=== PATIENT | female | born 1955 | race Caucasian/White ===

== ENCOUNTER 2017-05-18 22:52 | Inpatient (IN) ==
[2017-05-18 23:20] LABS: Basophils % 0.4 %; Eosinophils # 0.3 K/mcL (0.0-0.6); Eosinophils % 3.4 %; Hemoglobin 17.9 g/dL (11.5-15.4); Immature Granulocytes % 0.3 % (0-4); Lymphocytes # 1.1 K/mcL (0.6-4.6); Lymphocytes % 14.5 %; Mean Corpuscular HGB Conc 31.9 g/dL (31.6-35.5); Mean Corpuscular Hemoglobin 30.9 pg (28.0-33.3); Mean Corpuscular Volume 96.9 fL (83.0-100.0); Mean Platelet Volume 9.3 fL (9.4-12.4); Monocytes # 0.6 K/mcL (0.0-1.3); Monocytes % 8.5 %; Neutrophils # 5.4 K/mcL (1.6-8.9); Platelet Count 232 K/mcL (140-400); Red Cell Distribution Width 14.1 % (11.5-14.5); Segmented Neutrophils % 72.9 %
[2017-05-18 23:25] LABS: Hematocrit 56.2 % (35.3-44.9)
[2017-05-18 23:33] LABS: Calcium 10.4 mg/dL (8.6-10.8)
[2017-05-19 01:14] LABS: VBG HCO3 36 mEq/L (21-27); VBG PCO2 68 mmHg (41-51); VBG PH 7.34 pH Units (7.32-7.42); VBG PO2 54 mmHg (25-50)
[2017-05-19] MEDS ORDERED: *HR* Heparin 5,000 UNIT/ML VIAL IVP PRN ×2 (01:40)
[2017-05-19] MEDS ORDERED: *HR* Heparin 5,000 UNIT/ML VIAL IVP ONE (01:40)
[2017-05-19] MEDS ORDERED: Heparin 25,000 UNIT/500 ML D5W 25,000 UNIT/500 ML MLS IVC SCH (01:45)
--- NOTE | 2017-05-19 02:07 | Emergency Department Note ---
Disposition Clinical Impression: Hypoxemia CHF exacerbation Qualifiers: Congestive heart failure type: unspecified congestive heart failure type Qualified Code(s): I50.9 - Heart failure, unspecified Disposition: Admitted As Inpatient Condition: Fair Time of Disposition: 02:17 SOB HPI - General Chief Complaint: ED Shortness of Breath/Dyspnea Stated Complaint: RAS Time Seen by Provider: 05/18/17 23:05 Source: patient Limitations: no limitations Nursing Notes Reviewed: Yes Vital Signs Reviewed: Yes - History of Present Illness Patient is a 61-year-old female who presents to [facility] ED with a chief complaint of difficulty breathing. States her symptoms started on Sunday and she went to the primary care physician to get a chest x-ray. States that all looked good. She has been increasingly short of breath. Denies any nausea, vomiting, fever or chills. No recent upper respiratory-type symptoms. Past medical history significant for congestive heart failure. States it feels different from her previous CHF. Pt Subjective Complaint: shortness of breath Onset (ago): day(s) Severity: severe Consistency/Duration: gradually worsening Improves with: oxygen Worsens with: nothing Known history of: congestive heart failure Associated symptoms: Reports: orthopnea. Denies: chest pain, fever, cough, nausea/vomiting, abdominal pain Treatment prior to arrival: none Cough present: No - Related Data Home oxygen amount: none Home Medications Medication Instructions Recorded Confirmed Allopurinol [Zyloprim] 300 mg PO DAILY 05/19/17 05/19/17 Carvedilol [Coreg] 12.5 mg PO BID 05/19/17 05/19/17 Furosemide [Lasix] 40 mg PO BID 05/19/17 05/19/17 Gabapentin [Neurontin] 100 mg PO TID 05/19/17 05/19/17 Humalog 05/19/17 Insulin Glargine [Lantus] 200 unit SQ HS 05/19/17 05/19/17 Lisinopril [Zestril] 40 mg PO DAILY 05/19/17 05/19/17 Ranitidine HCl [Zantac] 150 mg PO BID 05/19/17 05/19/17 Spironolactone [Aldactone] 50 mg PO BID 05/19/17 05/19/17 Allergies Allergy/AdvReac Type Severity Reaction Status Date / Time No Known Allergies Allergy Verified 05/18/17 22:57 All systems ED: reviewed and negative except as stated. Past Medical History - Past Medical History Attestation: Yes The following information was validated with the patient. Source: patient Medical history: Reports: diabetes, hypertension Psychiatric history: Reports: no psych history HOSPICE AIDE history: Reports: bilateral tubal ligation - Social History Smoking Status: Former smoker Alcohol use: Reports: none Drug use: Reports: none Physical Exam - General Limitations: no limitations General appearance: alert, in no apparent distress - Head Head exam: atraumatic, normocephalic, normal inspection - Eye Eye exam: Present: normal appearance, EOMI - ENT ENT exam: normal exam, normal oropharynx, mucous membranes moist - Neck Neck exam: Present: normal inspection, full ROM, trachea midline - Chest Chest inspection: Present: normal inspection, symmetric chest wall rise - Respiratory Respiratory exam: Present: normal lung sounds bilaterally. Absent: respiratory distress, wheezes - Cardiovascular Cardiovascular exam: Present: normal rhythm, tachycardia - Abdominal Exam Abdominal exam: Present: soft, Non-Tender. Absent: tenderness, distention, guarding, rebound, rigidity - Extremities Exam Extremities exam: Present: normal inspection, full ROM. Absent: tenderness, pedal edema - Back Exam Back exam: Present: normal inspection - Neurological Exam Neurological exam: Present: alert - Psychiatric Psychiatric exam: Present: normal affect, normal mood - Skin Skin exam: Present: warm, dry, intact, normal color Course Course Narrative: Patient seen and examined. Sudden shortness of breath is gradually getting worse. Patient is obviously dyspneic and talks in short word sentences. Her lungs are clear bilaterally so do not suspect any airway bronchospasm. Concern for possible pulmonary embolism due to her hypoxemia. She was 72% on room air when she came in. The placed on 3 L and she came up to 92%. Denies any chest pain. Cardiopulmonary workup was initiated. CT of the chest was ordered to rule out pulmonary embolus. - Reevaluation(s) Reevaluation #1: Patient's creatinine is 1.5 and with signs of congestive heart failure on her chest x-ray, we held off on pretreating with IV fluids and doing a CTA of the chest. We discussed with nuclear med who cannot do the study until the morning. Dimer is 1273. We will prophylactically place patient on a heparin drip since suspicion for pulmonary embolus is high. Was admitted to hospitalist service. I spoke with hospitalist Dr. Spain who has accepted patient for admission. Time: 03:15 Vital Signs Temperature 98.1 F 05/18/17 22:53 Pulse Rate 104 05/18/17 22:53 Respiratory Rate 24 05/18/17 22:53 Blood Pressure 205/83 05/18/17 22:53 O2 Sat by Pulse Oximetry 73 05/18/17 22:53 Temperature 98.5 F 05/19/17 04:24 Pulse Rate 86 05/19/17 04:24 Respiratory Rate 18 05/19/17 04:24 Blood Pressure 136/78 05/19/17 04:24 O2 Sat by Pulse Oximetry 92 05/19/17 04:24 Oxygen Delivery Oxygen Delivery Nasal Cannula Shortness of Breath/Dyspnea - Medical Records Medical records reviewed: Yes I reviewed the patient's medical records. - Lab Data Lab results reviewed: Yes I reviewed the patient's lab results. Result diagrams: 05/18/17 23:05 05/18/17 23:05 Lab Results 05/18/17 05/18/17 05/18/17 Range/Units 23:05 23:05 23:05 WBC 7.4 (4.3-11.1) K/mcL RBC 5.80 H (3.82-4.97) M/mcL Hgb 17.9 H (11.5-15.4) g/dL Hct 56.2 H (35.3-44.9) % MCV 96.9 (83.0-100.0) fL MCH 30.9 (28.0-33.3) pg MCHC 31.9 (31.6-35.5) g/dL RDW 14.1 (11.5-14.5) % Plt Count 232 (140-400) K/mcL MPV 9.3 L (9.4-12.4) fL Immature Gran % 0.3 (0-4) % Seg Neutrophils % 72.9 % Lymphocytes % 14.5 % Monocytes % 8.5 % Eosinophils % 3.4 % Basophils % 0.4 % Neutrophils # 5.4 (1.6-8.9) K/mcL Lymphocytes # 1.1 (0.6-4.6) K/mcL Monocytes # 0.6 (0.0-1.3) K/mcL Eosinophils # 0.3 (0.0-0.6) K/mcL Basophils # 0.0 (0.0-0.2) K/mcL PT (9.4-12.1) Seconds INR APTT (26.0-36.0) Seconds D-Dimer (0-500) ng/mLFEU VBG pH (7.32-7.42) pH Units VBG pCO2 (41-51) mmHg VBG pO2 (25-50) mmHg VBG HCO3 (21-27) mEq/L Sodium 143 (136-145) mEq/L Potassium 4.0 (3.5-4.5) mEq/L Chloride 99 (98-109) mEq/L Carbon Dioxide 35 H (19-29) mEq/L BUN 21 H (7-20) mg/dL Creatinine 1.50 H (0.57-1.11) mg/dL Est GFR ( Amer) 43 L (> 60) Est GFR (Non-Af Amer) 35 L (> 60) BUN/Creatinine Ratio 14 (6-26) Glucose 145 H (70-99) mg/dL Calculated Osmolality 302 H (280-300) Lactic Acid 1.5 (0.5-2.2) mmol/L Calcium 10.4 (8.6-10.8) mg/dL Troponin I (0-0.03) ng/mL B-Natriuretic Peptide (0-100) pg/mL 05/18/17 05/18/17 05/19/17 Range/Units 23:05 23:05 00:53 WBC (4.3-11.1) K/mcL RBC (3.82-4.97) M/mcL Hgb (11.5-15.4) g/dL Hct (35.3-44.9) % MCV (83.0-100.0) fL MCH (28.0-33.3) pg MCHC (31.6-35.5) g/dL RDW (11.5-14.5) % Plt Count (140-400) K/mcL MPV (9.4-12.4) fL Immature Gran % (0-4) % Seg Neutrophils % % Lymphocytes % % Monocytes % % Eosinophils % % Basophils % % Neutrophils # (1.6-8.9) K/mcL Lymphocytes # (0.6-4.6) K/mcL Monocytes # (0.0-1.3) K/mcL Eosinophils # (0.0-0.6) K/mcL Basophils # (0.0-0.2) K/mcL PT (9.4-12.1) Seconds INR APTT (26.0-36.0) Seconds D-Dimer (0-500) ng/mLFEU VBG pH (7.32-7.42) pH Units VBG pCO2 (41-51) mmHg VBG pO2 (25-50) mmHg VBG HCO3 (21-27) mEq/L Sodium (136-145) mEq/L Potassium (3.5-4.5) mEq/L Chloride (98-109) mEq/L Carbon Dioxide (19-29) mEq/L BUN (7-20) mg/dL Creatinine (0.57-1.11) mg/dL Est GFR ( Amer) (> 60) Est GFR (Non-Af Amer) (> 60) BUN/Creatinine Ratio (6-26) Glucose (70-99) mg/dL Calculated Osmolality (280-300) Lactic Acid 0.9 (0.5-2.2) mmol/L Calcium (8.6-10.8) mg/dL Troponin I 0.01 (0-0.03) ng/mL B-Natriuretic Peptide 44 (0-100) pg/mL 05/19/17 05/19/17 05/19/17 Range/Units 00:53 01:11 02:20 WBC (4.3-11.1) K/mcL RBC (3.82-4.97) M/mcL Hgb (11.5-15.4) g/dL Hct (35.3-44.9) % MCV (83.0-100.0) fL MCH (28.0-33.3) pg MCHC (31.6-35.5) g/dL RDW (11.5-14.5) % Plt Count (140-400) K/mcL MPV (9.4-12.4) fL Immature Gran % (0-4) % Seg Neutrophils % % Lymphocytes % % Monocytes % % Eosinophils % % Basophils % % Neutrophils # (1.6-8.9) K/mcL Lymphocytes # (0.6-4.6) K/mcL Monocytes # (0.0-1.3) K/mcL Eosinophils # (0.0-0.6) K/mcL Basophils # (0.0-0.2) K/mcL PT 12.1 (9.4-12.1) Seconds INR 1.1 APTT 32.6 (26.0-36.0) Seconds D-Dimer 1273 H (0-500) ng/mLFEU VBG pH 7.34 (7.32-7.42) pH Units VBG pCO2 68 H (41-51) mmHg VBG pO2 54 H (25-50) mmHg VBG HCO3 36 H (21-27) mEq/L Sodium (136-145) mEq/L Potassium (3.5-4.5) mEq/L Chloride (98-109) mEq/L Carbon Dioxide (19-29) mEq/L BUN (7-20) mg/dL Creatinine (0.57-1.11) mg/dL Est GFR ( Amer) (> 60) Est GFR (Non-Af Amer) (> 60) BUN/Creatinine Ratio (6-26) Glucose (70-99) mg/dL Calculated Osmolality (280-300) Lactic Acid (0.5-2.2) mmol/L Calcium (8.6-10.8) mg/dL Troponin I (0-0.03) ng/mL B-Natriuretic Peptide (0-100) pg/mL - Radiology Data Radiology results reviewed: Yes I reviewed the patient's radiology results. Chest X-Ray 05/18/17 23:05 IMPRESSION: Mild cardiomegaly and central vascular congestion. No overt failure. D/ / Zion Deleon MD / Zion Deleon MD Interpreting Provider: Zion Deleon MD - EKG Data EKG attestation: Yes I reviewed and interpreted this EKG. EKG results narrative: EKG done at 2302 shows normal sinus rhythm with a rate of [address] elevation or depression. Normal axis. Attestation Statement - Attestation Attestation: I examined this patient and my medical decision-making was reviewed with the Resident Physician. I agree with the documented findings, disposition and treatment plan as described except to the extent set forth below. Patient presents to the emergency department with chief complaint shortness of breath. Onset 1 week ago by getting worse. No cough. No fever. History of CHF. Reports increased swelling in her legs. On examination she is tachypneic. Lung sounds diminished but clear. Afebrile. 3+ pitting edema bilateral lower extremities. Plan. Cardiac workup. Troponin is negative. Patient's GFR is too low for CTA. Potential V/Q scan, however they are not able to be performed after midnight. Patient been on heparin. VQ scan pending. 40 minutes of critical care exclusive of separately billable procedures.
[2017-05-19 02:33] LABS: INR 1.1; Prothrombin Time 12.1 Seconds (9.4-12.1)
[2017-05-19 02:35] LABS: Activated Partial Thrombo Time 32.6 Seconds (26.0-36.0)
[2017-05-19] MEDS ORDERED: *HR* Morphine 2 MG/ML SYRINGE IVP PRN (02:57)
[2017-05-19] MEDS ORDERED: Naloxone 0.4 MG/ML INJ IVP PRN (02:57)
[2017-05-19] MEDS ORDERED: Ondansetron 4 MG/2 ML VIAL IVP PRN (02:57)
[2017-05-19] MEDS ORDERED: *HR* HYDROcodone/Acet 5/325 mg TABLET PO PRN (02:57)
[2017-05-19] MEDS ORDERED: Lisinopril 20 MG TABLET PO ONE (04:00)
--- NOTE | 2017-05-19 04:12 | Internal Med History&Physical ---
Date of Encounter: 05/19/17 Time of Encounter: 03:00 Assessment and Plan (1) Shortness of breath Current visit: Yes Status: Acute Will admit the pt into Tele Her SOB seems to be multi factorial --however with sudden onset and hypoxemia with out any pneumonia / pleural fluids / pulmonary edema - concerning for PE Reviewed VBG results Reviewed CXR by myself Unable to do CTA of chest due to her CKD-3 Will continue heparin gtt for now will get V/Q Scan in AM will get venous doppler in AM (2) Acute respiratory failure with hypoxia Current visit: Yes Status: Acute Suspecting PE Could be due to hypoventilation syndrome with morbid obesity too placed her on Duoneb cont O2 may need home O2 eval (3) Hypoventilation syndrome Current visit: Yes Status: Acute (4) CHF (congestive heart failure) Current visit: Yes Status: Chronic does not look like in exacerbation no previous Echo to review, wether she has systolic or diastolic CHF will get 2 D Echo in AM Resumed all other home meds including Lasix and Aldactone Qualifiers: Qualified Code(s): I50.9 - Heart failure, unspecified (5) Hypertension, essential Current visit: Yes Status: Acute fairly controlled cont home meds will give hydralazine IV PRN (6) Elevated d-dimer Current visit: Yes Status: Acute will get V/Q Scan and b/l LE venous doppler (7) Morbid obesity with BMI of 50.0-59.9, adult Current visit: Yes Status: Acute counseled to loose weight (8) CKD (chronic kidney disease) stage 3, GFR 30-59 ml/min Current visit: Yes Status: Chronic stable Cr Internal Medicine - H&P: HPI Chief complaint: Shortness of breath Admitted From: Emergency Dept Plans for Post Hospital Care: Home History of present illness: Ms. Camarena is a 61 year old female with known PMH of HTN, HLD, CHF, DM2, Morbid obesity pt with possible hypoventilation syndrome who presented to ER last night c/o progressively worsening shortness of breath and MORLEY. She denied any CP, denied any cold/cough/URI symptoms. Denied any nasua / vomiting. She started having SOB from past 4 days , did go and see PCP 2 days ago who did CXR , which seems to be normal. However her SOB seems to be progressively worsening now. Past Med Surg Social Fam HX - Past Medical History Medical history: diabetes, hypertension Psychiatric history: no psych history - Past Surgical History Surgical History: cholecystectomy - Social History Smoking Status: Former smoker Smokeless Tobacco Status: No Alcohol use: none Drug use: none - Family History Father Adopted: No Living Status: Hx Family Cancer: Yes (colon) Internal Medicine - H&P: Meds Allopurinol [Zyloprim] 300 mg PO ONCE 05/19/17 [History] Carvedilol [Coreg] 12.5 mg PO BID 05/19/17 [History] Furosemide [Lasix] 40 mg PO BID 05/19/17 [History] Gabapentin [Neurontin] 100 mg PO TID 05/19/17 [History] Humalog 05/19/17 [History] Insulin Glargine [Lantus] 200 unit SQ HS 05/19/17 [History] Lisinopril [Zestril] 40 mg PO ONCE 05/19/17 [History] Ranitidine HCl [Zantac] 150 mg PO BID 05/19/17 [History] Spironolactone [Aldactone] 50 mg PO BID 05/19/17 [History] 3 Allergy/AdvReac Type Severity Reaction Status Date / Time No Known Allergies Allergy Verified 05/18/17 22:57 All Systems PM: A 10-system review of systems was performed and is negative for pertinent findings except as documented above in the HPI. - Constitutional Vitals: Temp Pulse Resp BP Pulse Ox 98.1 F 72 16 168/68 93 05/18/17 22:53 05/19/17 00:30 05/19/17 02:34 05/19/17 02:34 05/19/17 00:30 General appearance: Present: A&O X 3, answers questions appropriately - Head Head exam: Present: atraumatic, normal inspection - Respiratory Respiratory exam: Present: decreased breath sounds, wheezes. Absent: rales, respiratory distress, rhonchi - Cardiovascular Cardiovascular exam: Present: RRR, +S1, +S2. Absent: systolic murmur - GI/Abdominal GI/Abdominal exam: Present: distended, normal bowel sounds, soft. Absent: rebound, rigid, tenderness - Extremities Exam Extremities exam: Present: pedal edema (trace). Absent: calf tenderness, tenderness Additional comments: chronic venous stasis - Neurological Exam Neurological exam: Present: alert, oriented X3 - Psychiatric Psychiatric exam: Present: normal affect, normal mood Internal Med - H&P Results - Labs CBC & Chem 7: 05/18/17 23:05 05/18/17 23:05
[2017-05-19] MEDS ORDERED: Dextrose Gel 15 GM PO PRN ×2 (04:33)
[2017-05-19] MEDS ORDERED: *HR* Dextrose 50 % in Water (Syg) 50 ML SYRINGE IVP PRN (04:33)
[2017-05-19] MEDS ORDERED: D5% in Water 1,000 ML IVC PRN (04:33)
[2017-05-19 07:24] LABS: Basophils % 0.2 %; Eosinophils # 0.3 K/mcL (0.0-0.6); Hematocrit 50.4 % (35.3-44.9); Immature Granulocytes % 0.3 % (0-4); Lymphocytes # 1.3 K/mcL (0.6-4.6); Lymphocytes % 14.5 %; Mean Corpuscular HGB Conc 31.7 g/dL (31.6-35.5); Mean Corpuscular Hemoglobin 31.2 pg (28.0-33.3); Mean Corpuscular Volume 98.2 fL (83.0-100.0); Mean Platelet Volume 9.7 fL (9.4-12.4); Monocytes % 11.2 %; Neutrophils # 6.5 K/mcL (1.6-8.9); Platelet Count 198 K/mcL (140-400); Red Blood Count 5.13 M/mcL (3.82-4.97); Red Cell Distribution Width 13.9 % (11.5-14.5); Segmented Neutrophils % 70.8 %
[2017-05-19 07:29] LABS: Calcium 9.4 mg/dL (8.6-10.8); Chol/HDL Ratio 4.1 (0-4.9); Potassium 3.9 mEq/L (3.5-4.5)
[2017-05-19] MEDS ORDERED: 0.9 % Sodium Chloride 250 ML IVC ONE (07:41)
[2017-05-19] MEDS ORDERED: 0.9 % Sodium Chloride 1,000 ML IVC SCH (07:45)
[2017-05-19] MEDS ORDERED: 0.9 % Sodium Chloride 250 ML ONE (07:59)
[2017-05-19] MEDS: Insulin LISPRO 300 UNITS/3 ML VIAL SQ SCH ×4 (08:09→21:14)
[2017-05-19] MEDS: Famotidine 20 MG TABLET PO SCH ×2 (08:11→16:58)
[2017-05-19] MEDS: Lisinopril 20 MG TABLET PO SCH (08:11)
[2017-05-19] MEDS: Gabapentin 100 MG CAPSULE PO SCH ×3 (08:11→21:15)
[2017-05-19] MEDS: Furosemide 40 MG TABLET PO SCH (08:12)
[2017-05-19] MEDS: *HR* Acetylcysteine 20% 600 MG/3 ML ORAL SYRINGE PO SCH ×3 (08:18→21:15)
[2017-05-19 09:04] LABS: Activated Partial Thrombo Time 218.6 Seconds (26.0-36.0); Heparin anti-factor XA UFH 1.15 IU/mL (0.30-0.70)
[2017-05-19] MEDS ORDERED: 0.9 % Sodium Chloride 500 ML IVC SCH (09:31)
[2017-05-19] MEDS: Acetaminophen 325 MG TABLET PO PRN (09:53)
[2017-05-19] MEDS ORDERED: Ipratropium/Albuterol Neb 3 ML IH PRN (11:08)
--- NOTE | 2017-05-19 11:21 | Event Note ---
Date of Encounter: 05/19/17 Time of Encounter: 11:10 Patient is a 61y/o morbidly obese female with PMH of CHF, CKD who presented to the hospital for evaluation of shortness of breath. patient states she is a former smoker and used to smoke 2ppd x 40+years. Upon auscultation, she is noted to have decreased breath sounds bilaterally with poor inspiratory effort and b/l expiratory wheezing. She likely has underlying undiagnosed COPD contributing to her current symptoms. Pt will need outpatient Pulmonary function tests after discharge. She was noted to have elevated D-dimer upon her arrival and given her CKD, V/Q scan was ordered. Pt was unable to lay flat for the V/Q scan. She was started on heparin gtt upon admission. Pt was premedicated with mucomyst and IV fluids. She is to continue with gentle IV fluid hydration. Holding Lasix and Spironolocatone today. Will closely monitor for signs for volume overload. CTA chest negative for PE D/C Heparin drip Acute on chronic respiratory failure with hypoxia and hypercapnia -Start Prednisone 40mg PO Qd -Bronchodilator support -O2 supplementation -Bipap support -Will closely monitor CKD -Gentle IV fluids given the contrast study -Hold Lasix and Spironolactone today -Closely monitor renal function -will repeat BMP this evening CHF -Hold lasix and Spironolactone -monitor closely for signs of volume overload -continue BB DM -continue sliding scale insulin algorithm -monitor FS and BG DVT ppx -Heparin sQ
[2017-05-19] MEDS: predniSONE 20 MG TABLET PO SCH (11:33)
[2017-05-19] MEDS: Ipratropium/Albuterol Neb 3 ML IH SCH ×4 (14:16→23:05)
[2017-05-19] MEDS: *HR* Heparin 5,000 UNIT/ML VIAL SQ SCH (16:58)
[2017-05-19 18:37] LABS: Calcium 9.2 mg/dL (8.6-10.8); Potassium 4.7 mEq/L (3.5-4.5)
[2017-05-20] MEDS: Ipratropium/Albuterol Neb 3 ML IH SCH ×6 (04:11→23:00)
[2017-05-20] MEDS: *HR* Heparin 5,000 UNIT/ML VIAL SQ SCH ×2 (05:42→16:17)
[2017-05-20 06:30] LABS: Basophils % 0.2 %; Eosinophils % 0.2 %; Hematocrit 46.5 % (35.3-44.9); Hemoglobin 14.6 g/dL (11.5-15.4); Immature Granulocytes % 0.4 % (0-4); Lymphocytes # 1.1 K/mcL (0.6-4.6); Lymphocytes % 12.6 %; Mean Corpuscular HGB Conc 31.4 g/dL (31.6-35.5); Mean Corpuscular Hemoglobin 31.1 pg (28.0-33.3); Mean Corpuscular Volume 98.9 fL (83.0-100.0); Mean Platelet Volume 9.8 fL (9.4-12.4); Monocytes # 0.9 K/mcL (0.0-1.3); Monocytes % 10.4 %; Neutrophils # 6.4 K/mcL (1.6-8.9); Platelet Count 199 K/mcL (140-400); Red Cell Distribution Width 13.9 % (11.5-14.5); Segmented Neutrophils % 76.2 %
[2017-05-20 06:44] LABS: Calcium 9.1 mg/dL (8.6-10.8); Magnesium 1.4 mg/dL (1.6-2.6); Phosphorous 3.6 mg/dL (2.3-4.7); Potassium 4.2 mEq/L (3.5-4.5)
[2017-05-20] MEDS: Insulin LISPRO 300 UNITS/3 ML VIAL SQ SCH ×4 (08:25→21:54)
[2017-05-20] MEDS ORDERED: Magnesium Sulfate 2 GM in D5% in Water 100 ML IVPB ONE (08:31)
[2017-05-20] MEDS: Lisinopril 20 MG TABLET PO SCH (08:54)
[2017-05-20] MEDS: predniSONE 20 MG TABLET PO SCH (08:55)
[2017-05-20] MEDS: Famotidine 20 MG TABLET PO SCH ×2 (10:04→16:17)
[2017-05-20] MEDS: Gabapentin 100 MG CAPSULE PO SCH ×3 (10:04→21:35)
[2017-05-20] MEDS: *HR* Acetylcysteine 20% 600 MG/3 ML ORAL SYRINGE PO SCH ×2 (10:10→21:35)
--- NOTE | 2017-05-20 10:22 | Internal Med Progress Note ---
Date of Encounter: 05/20/17 Time of Encounter: 10:19 - Assessment and plan (1) Acute respiratory failure with hypoxia and hypercapnia Current Visit: Yes Status: Acute Assessment and plan: LIkely secondary to underlying COPD continue systemic steroids and bronchodilator support O2 supplementation as needed bipap support will obtain 6minute walk test in am pt to obtain PFTs after discharge clinically improved from previous day (2) COPD exacerbation Current Visit: Yes Status: Acute Assessment and plan: as listed above (3) Hypomagnesemia Current Visit: Yes Status: Acute Assessment and plan: Mg supplemented continue to monitor electrolytes and replace as needed (4) Hypoventilation syndrome Current Visit: Yes Status: Chronic (5) CHF (congestive heart failure) Current Visit: Yes Status: Chronic Assessment and plan: Not in acute exacerbation restarted home diuretics continue to closely monitor strict I/Os daily weights fluid restriction diet Qualifiers: Congestive heart failure type: unspecified congestive heart failure type Congestive heart failure chronicity: chronic Qualified Code(s): I50.9 - Heart failure, unspecified (6) Hypertension, essential Current Visit: Yes Status: Chronic Assessment and plan: BP within acceptable range continue home medications (7) CKD (chronic kidney disease) stage 3, GFR 30-59 ml/min Current Visit: Yes Status: Chronic Assessment and plan: renal function at baseline will continue to monitor (8) Morbid obesity with BMI of 50.0-59.9, adult Current Visit: Yes Status: Chronic (9) Hypothyroidism Current Visit: Yes Status: Chronic Assessment and plan: continue home dose of levothyroxine Qualifiers: Hypothyroidism type: unspecified Qualified Code(s): E03.9 - Hypothyroidism , unspecified (10) DVT prophylaxis Current Visit: Yes Status: Acute Assessment and plan: Heparin sQ - Subjective Interval history: Patient seen and examined with family present at bedside. pt reports of feeling significantly better compared to previous day. She states she used bipap overnight and was able to sleep comfortably throughout the night. Denies any pain or sob at this time. No overnight issues reported - Constitutional Vitals: Temp Pulse Resp BP Pulse Ox 98.2 F 51 20 122/66 91 05/20/17 07:55 05/20/17 07:55 05/20/17 07:55 05/20/17 07:55 05/20/17 09:02 General appearance: Present: cooperative, A&O X 3, morbidly obese, pleasant, no acute distress, answers questions appropriately - Head Head exam: Present: atraumatic, normocephalic - Eye Eye exam: Present: conjuntiva pink, sclera anicteric - Respiratory Respiratory exam: Absent: respiratory distress, wheezes (equal air entry bilaterally) - Cardiovascular Cardiovascular exam: Present: bradycardia, +S1, +S2. Absent: diastolic murmur, gallop, rubs, systolic murmur - GI/Abdominal GI/Abdominal exam: Present: normal bowel sounds, soft, no peritoneal signs. Absent: distended, tenderness - Extremities Exam Extremities exam: Present: pedal edema, warm, radial pulses palpable and symmetrical. Absent: calf tenderness - Neurological Exam Neurological exam: Present: alert, oriented X3 Internal Medicine: Result - Labs CBC & Chem 7: 05/20/17 06:06 05/20/17 06:06 Labs: Short CBC 05/20/17 Range/Units 06:06 WBC 8.3 (4.3-11.1) K/mcL Hgb 14.6 (11.5-15.4) g/dL Hct 46.5 H (35.3-44.9) % Plt Count 199 (140-400) K/mcL Neutrophils # 6.4 (1.6-8.9) K/mcL BMP 05/19/17 05/20/17 18:10 06:06 Sodium 139 141 Potassium 4.7 H 4.2 Chloride 100 102 Carbon Dioxide 34 H 35 H BUN 22 H 26 H Creatinine 1.41 H 1.36 H Glucose 252 H 142 H Calcium 9.2 9.1 Cardiac Enzymes 05/19/17 Range/Units 12:39 Troponin I 0.02 (0-0.03) ng/mL - ABG Interpretation ABG results: PT/INR, D-dimer PT 12.1 Seconds (9.4-12.1) 05/19/17 02:20 D-Dimer 1273 ng/mLFEU (0-500) H 05/19/17 00:53 Consult Discharge Plan - Plan Referrals: Pedro Vo MD [Primary Care Provider] -
--- NOTE | 2017-05-20 15:57 | Venous Imaging Report ---
LE Venous Duplex Patient Name:Viviana Camarena Order Number:[id number] Procedure Date:05/19/2017 Date:1955ge:61 yrs Gender:Female Location:[facility] Room #: 2A37 Back Tender:Neelam Mckeon RVT, RDCS Referring MD:Lorena Justice MD airplane captain:Pedro Vo MD Reading MD:Davie Lane MD Primary Indications:LE swelling Secondary Indications: Risk Factors Yes/No Hx of DVT No Anticoagulants No Impressions: Normal bilateral lower extremity deep and superficial venous exam. Recommendations: Test completed on 05/19/2017 at 4:26:12 pm. Critical findings reported to Mikala RODRIGUEZ by phone at 4:26:22 pm on 05/19/2017 by Neelam Mckeon RVT, RDCS. Findings Venous Duplex Results: Right: Venous imaging of the lower extremity reveals full patency and normal vessel compressibility of the right distal iliac, right common femoral, right superficial femoral, right popliteal, right posterior tibial, right peroneal, right saphenofemoral junction, right great saphenous and right lesser saphenous. Doppler signals in the evaluated veins were normal. The right posterior tibial and right peroneal veins were not well visualized. Left: Venous imaging of the lower extremity reveals full patency and normal vessel compressibility of the left distal iliac, left common femoral, left superficial femoral, left popliteal, left posterior tibial, left peroneal, left saphenofemoral junction, left great saphenous and left lesser saphenous. Doppler signals in the evaluated veins were normal. The left posterior tibial and left peroneal veins were not well visualized. Lower Extremity Venous Duplex Side Vein Compress Spontaneous Flow Augment Diameter (cm) Depth (cm) Right Distal Iliac Normal Yes Phasic Yes Right Common Femoral Normal Yes Phasic Yes Right Superficial Femoral Normal Yes Phasic Yes Right Popliteal Normal Yes Phasic Yes Right Posterior Tibial Normal Yes Phasic Yes Right Peroneal Normal Yes Phasic Yes Right Saphenofemoral Junction Normal Yes Phasic Yes Right Great Saphenous Normal Yes Phasic Yes Right Lesser Saphenous Normal Yes Phasic Yes Left Distal Iliac Normal Yes Phasic Yes Left Common Femoral Normal Yes Phasic Yes Left Superficial Femoral Normal Yes Phasic Yes Left Popliteal Normal Yes Phasic Yes Left Posterior Tibial Normal Yes Phasic Yes Left Peroneal Normal Yes Phasic Yes Left Saphenofemoral Junction Normal Yes Phasic Yes Left Great Saphenous Normal Yes Phasic Yes Left Lesser Saphenous Normal Yes Phasic Yes Updated by Davie Lane MD on 05/20/2017 3:49:38 PM electronically signed on 05/20/2017 3:49:48 PM with status of Final
[2017-05-20] MEDS: Furosemide 40 MG TABLET PO SCH (16:17)
[2017-05-20] MEDS: Acetaminophen 325 MG TABLET PO PRN (18:52)
[2017-05-21] MEDS: Ipratropium/Albuterol Neb 3 ML IH SCH ×4 (03:59→15:58)
[2017-05-21 04:09] LABS: Basophils % 0.1 %; Eosinophils % 0.1 %; Hematocrit 45.5 % (35.3-44.9); Hemoglobin 14.5 g/dL (11.5-15.4); Immature Granulocytes % 0.4 % (0-4); Lymphocytes % 10.2 %; Mean Corpuscular HGB Conc 31.9 g/dL (31.6-35.5); Mean Corpuscular Hemoglobin 31.4 pg (28.0-33.3); Mean Corpuscular Volume 98.5 fL (83.0-100.0); Mean Platelet Volume 9.7 fL (9.4-12.4); Monocytes # 0.8 K/mcL (0.0-1.3); Monocytes % 8.7 %; Neutrophils # 7.5 K/mcL (1.6-8.9); Platelet Count 190 K/mcL (140-400); Red Blood Count 4.62 M/mcL (3.82-4.97); Segmented Neutrophils % 80.5 %
[2017-05-21 04:28] LABS: Calcium 9.1 mg/dL (8.6-10.8); Magnesium 1.7 mg/dL (1.6-2.6); Phosphorous 3.3 mg/dL (2.3-4.7); Potassium 4.1 mEq/L (3.5-4.5)
[2017-05-21] MEDS: *HR* Heparin 5,000 UNIT/ML VIAL SQ SCH (05:38)
[2017-05-21] MEDS: Insulin LISPRO 300 UNITS/3 ML VIAL SQ SCH ×3 (08:50→16:44)
[2017-05-21] MEDS: Famotidine 20 MG TABLET PO SCH ×2 (08:51→15:41)
[2017-05-21] MEDS: Gabapentin 100 MG CAPSULE PO SCH ×2 (08:51→15:41)
[2017-05-21] MEDS: Furosemide 40 MG TABLET PO SCH ×2 (08:51→16:45)
[2017-05-21] MEDS: predniSONE 20 MG TABLET PO SCH (08:51)
[2017-05-21] MEDS: Lisinopril 20 MG TABLET PO SCH (08:51)
[2017-05-21] MEDS: *HR* Acetylcysteine 20% 600 MG/3 ML ORAL SYRINGE PO SCH (08:52)
[2017-05-21 11:21] VITALS: BP 154/81
--- NOTE | 2017-05-21 14:03 | Discharge Summary ---
Date of Encounter: 05/21/17 Time of Encounter: 12:55 - Discharge Diagnosis (1) Acute respiratory failure with hypoxia and hypercapnia Priority: Primary Status: Acute (2) COPD exacerbation Priority: Primary Status: Acute (3) Hypomagnesemia Priority: Secondary Status: Resolved (4) Hypoventilation syndrome Priority: Secondary Status: Chronic (5) CHF (congestive heart failure) Priority: Secondary Status: Chronic Qualifiers: Congestive heart failure type: unspecified congestive heart failure type Congestive heart failure chronicity: chronic Qualified Code(s): I50.9 - Heart failure, unspecified (6) Hypertension, essential Priority: Secondary Status: Chronic (7) CKD (chronic kidney disease) stage 3, GFR 30-59 ml/min Priority: Secondary Status: Chronic (8) Morbid obesity with BMI of 50.0-59.9, adult Priority: Secondary Status: Chronic (9) Hypothyroidism Priority: Secondary Status: Chronic Qualifiers: Hypothyroidism type: unspecified Qualified Code(s): E03.9 - Hypothyroidism , unspecified (10) DVT prophylaxis Priority: Secondary Status: Acute - Discharge Medications Prescriptions: Albuterol Sulfate [Albuterol Inhaler] 2 puff IH Q4HR #1 hfa.aer.ad predniSONE [PredniSONE] 40 mg PO DAILY #4 tablet Home Medications: Allopurinol [Zyloprim] 300 mg PO DAILY 05/19/17 [History] Carvedilol [Coreg] 12.5 mg PO BID 05/19/17 [History] Furosemide [Lasix] 40 mg PO BID 05/19/17 [History] Gabapentin [Neurontin] 100 mg PO TID 05/19/17 [History] Insulin Glargine [Lantus] 200 unit SQ HS 05/19/17 [History] Insulin LISPRO [HumaLOG] 0 - 12 units SQ TID PRN 05/19/17 [History] Levothyroxine Sodium [Levoxyl] 125 mcg PO DAILY 05/19/17 [History] Lisinopril [Zestril] 40 mg PO DAILY 05/19/17 [History] Ranitidine HCl [Zantac] 150 mg PO BID 05/19/17 [History] Spironolactone [Aldactone] 50 mg PO BID 05/19/17 [History] Albuterol Sulfate [Albuterol Inhaler] 2 puff IH Q4HR #1 hfa.aer.ad 05/21/17 [Rx] predniSONE [PredniSONE] 40 mg PO DAILY #4 tablet 05/21/17 [Rx] Allergies/Adverse Reactions: 3 Allergy/AdvReac Type Severity Reaction Status Date / Time No Known Allergies Allergy Verified 05/18/17 22:57 Date of admission: 05/20/17 10:27 Primary care physician: Pedro Vo MD Discharging clinician: Lorena Justice Anticipated date of discharge: 05/21/17 - Patient Status Disposition: Home, Self-Care Condition: Good Functional capacity at discharge: independent ambulation Overall status at discharge: patient is back to baseline - Discharge Instructions Follow Up With: Pedro Vo MD [Primary Care Provider] - ([phone] Dr. Vo new phone number) Additional Instructions: Please follow up with your primary care physician within five days after your discharge from the hospital. Please follow up with pulmonology within one to two weeks after your discharge from the patient. 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 Please continue oral prednisone as prescribed. Resume all your home medications as prescribed by your primary care physician. Albuterol Inhaler has been added to your home medications. Use this inhaler as needed for shortness of breath. - Diet and Activity Activity: resume usual activities as tolerated, wear oxygen at all times, wear oxygen at night Diet: diabetic diet, low fat, low cholesterol, low salt diet Hospital course: Ms. Camarena is a 61 year old female - Time Spent with Patient Total time spent providing and/or coordinating discharge services: Greater than 30 minutes - Constitutional Vitals: Temp Pulse Resp BP Pulse Ox 97.8 F 75 20 154/81 86 05/21/17 11:15 05/21/17 11:15 05/21/17 11:56 05/21/17 11:15 05/21/17 11:56 General appearance: Present: cooperative, A&O X 3, morbidly obese, pleasant, no acute distress, answers questions appropriately - Head Head exam: Present: atraumatic, normocephalic - Eye Eye exam: Present: conjuntiva pink, sclera anicteric - Respiratory Respiratory exam: Present: CTAB. Absent: accessory muscle use, rales, rhonchi, wheezes - Cardiovascular Cardiovascular exam: Present: RRR, +S1, +S2. Absent: diastolic murmur, gallop, rubs, systolic murmur - GI/Abdominal GI/Abdominal exam: Present: normal bowel sounds, soft, no peritoneal signs. Absent: distended, tenderness - Extremities Exam Extremities exam: Present: pedal edema, warm, radial pulses palpable and symmetrical. Absent: calf tenderness - Neurological Exam Neurological exam: Present: alert, oriented X3 - Psychiatric Psychiatric exam: Present: normal affect, normal mood
--- NOTE | 2017-05-21 18:34 | Electrocardiograph Report ---
[address] [address] Test Date: 2017-05-18 Pat Name: Viviana Camarena Department: 103 Room: 2A37 Gender: F Health Unit Clerk: : 1955 Requested By: Cristiana Rogel Order Number: [id number] Reading MD: Adeel Montes MD Measurements Intervals [place] Rate: 86 P: 69 PA: 136 QRS: 74 QRSD: 97 T: 54 QT: 354 QTc: 397 Interpretive Statements SINUS RHYTHM BASELINE ARTIFACT Electronically Signed On 05-21-2017 18:32:37 EDT by Adeel Montes MD
--- NOTE | 2017-05-21 20:12 | Electrocardiograph Report ---
[place] [address] Test Date: 2017-05-20 Pat Name: Viviana Camarena Department: 112 Room: 2A37 Gender: F Picture Enlarger: DUNG : 1955 Requested By: Lorena Justice Order Number: [id number] Reading MD: Adeel Montes MD Measurements Intervals [place] Rate: 65 P: 59 ID: [id number] QRS: 50 QRSD: 98 T: 42 QT: 405 QTc: 417 Interpretive Statements SINUS RHYTHM BASELINE ARTIFACT Electronically Signed On 05-21-2017 20:11:19 EDT by Adeel Mnotes MD
[2017-05-22] MEDS ORDERED: Insulin DETEMIR 100 UNIT/ML X5UNITS SQ SCH (09:00)
== END 2017-05-21 17:56 | disposition home or self-care (01) | DRG 140 ==
LOC: 2ANU 22:52 → EMEROO 22:52 → SUATTDRO 05-19 02:23 → 2ANU 05-19 02:36 → SUATTDRO 05-20 10:27
PROVIDERS: ADMIT Pediatrics; ATTEND Internal Medicine